=== PATIENT | male | born 1950 | race Caucasian/White ===

== ENCOUNTER 2017-08-03 10:26 | Inpatient (IN) | payer MEDICARE, BC ==
[2017-08-03] MEDS: traMADol 50 MG Tab PO PRN (20:20)
[2017-08-04] MEDS: Acetaminophen 500 MG Tab PO PRN ×3 (00:33→16:10)
[2017-08-04] MEDS: traMADol 50 MG Tab PO PRN ×3 (03:48→19:28)
[2017-08-04] MEDS ORDERED: Acetaminophen 500 MG Tab PO PRN (08:57)
[2017-08-04] MEDS ORDERED: traMADol 50 MG Tab PO PRN (08:57)
[2017-08-04] MEDS ORDERED: Cyclobenzaprine 10 MG Tab PO PRN (08:57)
[2017-08-04] MEDS ORDERED: Diazepam 2 MG Tab PO PRN (08:57)
--- NOTE | 2017-08-04 09:03 | PCM.HP ---
H&P History of Present Illness - General Date of Service: 08/04/17 Admit Problem/Dx: Admission Diagnosis/Problem Admission Diagnosis/Problem Laminectomy Source of Information: Patient History Limitations: Reports: No Limitations - History of Present Illness Initial Comments - Free Text/Narative: This is a 67-year-old male patient that was transferred here from the [facility] after he had L4-L5 fusion and a decompression of L1-L2, L2-L3. He's here for rehabilitation. He also had positive urinary retention. He states the try to get the catheter out and straight cathetering. He had a lot of retention so he is sent with a catheter in place on Flomax and they recommend a urology appointment. Patient states he has leg pain and it's about the same but his back pain is improved. He has no other concerns. He says wasn't oxycodone but it caused visual hallucinations. He's been using the tramadol and that's working for his pain. He denies chest pain, shortness of breath, wheezing or leg swelling. Lower Back Pain Score (Numeric/FACES): 5 - Related Data Allergies/Adverse Reactions: Allergies Allergy/AdvReac Type Severity Reaction Status Date / Time Penicillins Allergy Stomach Verified 08/03/17 18:34 Upset Home Medications: Home Meds Ascorbic Acid [Vitamin C] 1,000 mg PO DAILY 04/09/15 [History] Aspirin [Ecotrin] 81 mg PO DAILY 04/09/15 [History] Cyclobenzaprine [Flexeril] 10 mg PO BEDTIME PRN 04/09/15 [History] Fexofenadine [Betty] 180 mg PO DAILY 04/09/15 [History] Lisinopril 20 mg PO DAILY 04/09/15 [History] Metoprolol Succinate [Toprol Xl] 100 mg PO DAILY 04/09/15 [History] Multivit-Min/FA/Lycopene/Lut [Centrum Silver Tablet] 1 tab PO DAILY 04/09/15 [ History] Acetaminophen 1,000 mg PO TID PRN 08/03/17 [History] Cranberry 400 mg PO DAILY 08/03/17 [History] Diazepam [Valium] 2 mg PO Q6H PRN 08/03/17 [History] Glucosam/Msm/Chond/Bmv941/Hyal [Vagnpntpslc-Taidtwyfuyy-WIM] 1 tab PO BID [History] Sennosides/Docusate Sodium [Sennosides-Docusate Sodium] 2 tab PO BID 08/03/17 [ History] Tamsulosin [Flomax] 0.4 mg PO DAILY 08/03/17 [History] oxyCODONE 5 mg PO Q4H PRN 08/03/17 [History] traMADol [Ultram] 50 mg PO Q6H PRN 08/03/17 [History] Past Medical History HEENT History: Reports: Impaired Vision Cardiovascular History: Reports: Heart Failure, Hypertension Respiratory History: Reports: COPD Gastrointestinal History: Reports: Hemorrhoids, Hiatal Hernia Other Gastrointestinal History: PSEUDO CYST ON PANCREAS; pancreatitis Genitourinary History: Reports: Renal Calculus Other Genitourinary History: RETENION. STATES WAS TOLD HAS PROSTATE ISSUES Other Musculoskeletal History: BILATERAL SHOULDER PAINS WHICH NEEDED ARTHROSCOPIC CARE WITH Endocrine/Metabolic History: Reports: Obesity/BMI 30+ Other Oncologic History: OF EAR LOBE-skin CA Other Dermatologic History: ACTINIC KERATOSIS, CHRONIC GROIN RASH - Infectious Disease History Infectious Disease History: Reports: Chicken Pox, Measles, Mumps - Past Surgical History HEENT Surgical History: Reports: Other (See Below) Other HEENT Surgeries/Procedures: SINUS SURGERY Cardiovascular Surgical History: Reports: None GI Surgical History: Reports: Cholecystectomy, Colonoscopy Other GI Surgeries/Procedures: LAP TITUS, PANCREATIC CYST; hemorrhoid surgery Male Surgical History: Reports: None Musculoskeletal Surgical History: Reports: Arthroscopic Knee, Shoulder Surgery, Other (See Below) Other Musculoskeletal Surgeries/Procedures:: Bilateral shoulder scopes; Bilateral knee scopes Social & Family History - Family History Family Medical History: Noncontributory - Tobacco Use Smoking Status *Q: Never Smoker - Caffeine Use Caffeine Use: Reports: Coffee, Soda - Recreational Drug Use Recreational Drug Use: No H&P Review of Systems - Review of Systems: Review Of Systems: See Below General: Reports: No Symptoms HEENT: Reports: No Symptoms Pulmonary: Reports: No Symptoms Cardiovascular: Reports: No Symptoms Gastrointestinal: Reports: No Symptoms Genitourinary: Reports: No Symptoms Musculoskeletal: Reports: Back Pain Skin: Reports: No Symptoms Psychiatric: Reports: No Symptoms Neurological: Reports: No Symptoms Hematologic/Lymphatic: Reports: No Symptoms Immunologic: Reports: No Symptoms Exam - Exam Exam: See Below - Vital Signs Weight: 287 lb 9.6 oz - Exam General: Alert, Oriented, Cooperative HEENT: Conjunctiva Clear, EACs Clear, EOMI, Hearing Intact, Mucosa Moist & [place] , Posterior Pharynx Clear, TMs Clear Neck: Supple, Trachea Midline Lungs: Clear to Auscultation, Normal Respiratory Effort. No: Crackles, Rales, Rhonchi Cardiovascular: Regular Rate, Regular Rhythm, Normal S1, Normal S2. No: Systolic Murmur, Diastolic Murmur GI/Abdominal Exam: Normal Bowel Sounds, Non-Tender, No Organomegaly, No Distention, No Mass Extremities: Normal Inspection, Non-Tender, No Pedal Edema Skin: Warm Neurological: Normal Speech, Normal Tone Neuro Extensive - Mental Status: Alert, Oriented x3, Normal Mood/Affect, Normal Cognition Psychiatric: Alert, Normal Affect, Normal Mood *Q Meaningful Use (ADM) - VTE *Q VTE Criteria *Q: - Stroke *Q Stroke Criteria *Q: - AMI *Q AMI Criteria *Q: - Problem List (1) Fusion of lumbar spine SNOMED Code(s): 297513101 ICD Code: M43.26 - FUSION OF SPINE, LUMBAR REGION Status: Acute Current Visit: Yes (2) Constipation SNOMED Code(s): 67885108 ICD Code: K59.00 - CONSTIPATION, UNSPECIFIED Status: Acute Current Visit : Yes (3) Urinary retention SNOMED Code(s): 201272671 ICD Code: R33.9 - RETENTION OF URINE, UNSPECIFIED Status: Acute Current Visit: Yes (4) Rothman catheter in place on admission SNOMED Code(s): 758596737 ICD Code: Z96.0 - PRESENCE OF UROGENITAL IMPLANTS Status: Acute Current Visit: Yes Problem List Initiated/Reviewed/Updated: Yes Orders Last 24hrs: Active Orders 24 hr Category Date Time Status Admission Status [Patient Status] [ADT] Routine ADT 08/03/17 16:50 Active Incentive Spirometry [RT Incentive Spirometry] [] Care 08/03/17 19:02 Active ASDIRECTED May Shower [] DAILY Care 08/03/17 18:37 Active Oxygen Therapy [] PRN Care 08/03/17 18:37 Active Up ad Jennifer [] QSHIFT Care 08/03/17 18:37 Active Urinary Catheter Assessment [RC] 08,16,00 Care 08/03/17 18:37 Active Vital Signs [RC] 08 Care 08/03/17 18:37 Active Wound Care [RC] 08,16,00 Care 08/03/17 18:37 Active OT Evaluation and Treatment [CONS] Routine Cons 08/03/17 18:37 Active PT Evaluation and Treatment [CONS] Routine Cons 08/03/17 18:37 Active Regular Diet [DIET] Diet 08/03/17 Dinner Active Acetaminophen [Tylenol Extra Strength] Med 08/03/17 19:37 Active 1,000 mg PO TID PRN Acetaminophen [Tylenol Extra Strength] Med 08/04/17 08:57 Ordered 1,000 mg PO TID PRN Ascorbic Acid [Vitamin C] Med 08/04/17 09:00 Ordered 1,000 mg PO DAILY Aspirin [Halfprin] Med 08/04/17 09:00 Ordered 81 mg PO DAILY Cranberry [Cranberry] Med 08/04/17 09:00 Ordered 400 mg PO DAILY Cyclobenzaprine [Flexeril] Med 08/04/17 08:57 Ordered 10 mg PO BEDTIME PRN Diazepam [Valium] Med 08/04/17 08:57 Ordered 2 mg PO Q6H PRN Docusate Sodium/Sennosides [Senna Plus] Med 08/03/17 21:00 Active 2 tab PO BID Docusate Sodium/Sennosides [Senna Plus] Med 08/04/17 09:00 Ordered 2 tab PO BID Fexofenadine [Betty] Med 08/04/17 09:00 Ordered 180 mg PO DAILY Glucosam/Msm/Chond/Odt169/Hyal [Glucosamine-Chondroitin Med 08/04/17 09:00 Ordered -MSM] 1 tab PO BID Lisinopril [Prinivil] Med 08/04/17 09:00 Ordered 20 mg PO DAILY Metoprolol Succinate [Toprol XL] Med 08/04/17 09:00 Ordered 100 mg PO DAILY Multivit-Min/FA/Lycopene/Lut [Centrum Silver Tablet] Med 08/04/17 09:00 Ordered 1 tab PO DAILY Tamsulosin [Flomax] Med 08/04/17 09:00 Ordered 0.4 mg PO DAILY traMADol [Ultram] Med 08/03/17 19:37 Active 50 mg PO Q6H PRN traMADol [Ultram] Med 08/04/17 08:57 Ordered 50 mg PO Q6H PRN Ice Therapy [OM.PC] Routine Oth 08/03/17 18:37 Ordered Resuscitation Status Routine Resus Stat 08/03/17 18:37 Ordered Medication Orders Acetaminophen (Tylenol Extra Strength) 1,000 mg PO TID PRN PRN Reason: Pain Last Admin: 08/04/17 00:33 Dose: 1,000 mg Acetaminophen (Tylenol Extra Strength) 1,000 mg PO TID PRN PRN Reason: Pain Aspirin (Halfprin) 81 mg PO DAILY JES Cyclobenzaprine HCl (Flexeril) 10 mg PO BEDTIME PRN PRN Reason: Muscle Spasm Diazepam (Valium) 2 mg PO Q6H PRN PRN Reason: Anxiety Fexofenadine HCl (Betty) 180 mg PO DAILY JES Lisinopril (Prinivil) 20 mg PO DAILY JES Metoprolol Succinate (Toprol Xl) 100 mg PO DAILY [facility] Non-Formulary Medication (Ascorbic Acid [Vitamin C]) 1,000 mg PO DAILY [facility] Non-Formulary Medication (Cranberry [Cranberry]) 400 mg PO DAILY [facility] Non-Formulary Medication (Glucosam/Msm/Chond/Iys975/Hyal [Glucosamine- Chondroitin-Msm]) 1 tab PO BID [facility] Non-Formulary Medication (Multivit-Min/Fa/Lycopene/Lut [Centrum Silver Tablet]) 1 tab PO DAILY JES Senna/Docusate Sodium (Senna Plus) 2 tab PO BID JES Last Admin: 08/04/17 08:26 Dose: 2 tab Admin: 08/03/17 20:19 Dose: 2 tab Senna/Docusate Sodium (Senna Plus) 2 tab PO BID JES Tamsulosin HCl (Flomax) 0.4 mg PO DAILY [facility] Tramadol HCl (Ultram) 50 mg PO Q6H PRN PRN Reason: Pain Last Admin: 08/04/17 03:48 Dose: 50 mg Admin: 08/03/17 20:20 Dose: 50 mg Tramadol HCl (Ultram) 50 mg PO Q6H PRN PRN Reason: Pain Assessment/Plan Comment:: 1. Admit the patient to swing bed 2. Continue his home meds. Hold oxycodone use tramadol for pain. 3. PT/OT. 4. Wound care. 5. Urology consultation in regards to urinary retention and catheter placement.
[2017-08-04] MEDS: Lisinopril 20 MG Tab PO SCH (10:15)
[2017-08-04] MEDS: Aspirin 81 MG Tab.EC PO SCH (10:15)
[2017-08-04] MEDS: Tamsulosin 0.4 MG Cap.ER PO SCH (10:15)
[2017-08-04] MEDS: Metoprolol Succinate 100 MG Tab.ER PO SCH (10:15)
[2017-08-04] MEDS: Multivitamins, Therapeutic with Minerals Tab PO SCH (10:16)
[2017-08-04] MEDS: Chondroitin/Glucosamine Cap PO SCH ×2 (10:16→20:36)
[2017-08-04] MEDS: Ascorbic Acid 500 MG Tab PO SCH (10:16)
[2017-08-04] MEDS: Cranberry 500 MG Cap PO SCH (10:16)
[2017-08-05] MEDS: traMADol 50 MG Tab PO PRN ×3 (02:31→19:25)
[2017-08-05] MEDS: Acetaminophen 500 MG Tab PO PRN ×2 (07:50→16:45)
[2017-08-05] MEDS: Cranberry 500 MG Cap PO SCH (08:20)
[2017-08-05] MEDS: Tamsulosin 0.4 MG Cap.ER PO SCH (08:20)
[2017-08-05] MEDS: Aspirin 81 MG Tab.EC PO SCH (08:20)
[2017-08-05] MEDS: Chondroitin/Glucosamine Cap PO SCH ×2 (08:20→20:38)
[2017-08-05] MEDS: Lisinopril 20 MG Tab PO SCH (08:21)
[2017-08-05] MEDS: Metoprolol Succinate 100 MG Tab.ER PO SCH (08:21)
[2017-08-05] MEDS: Multivitamins, Therapeutic with Minerals Tab PO SCH (08:22)
[2017-08-05] MEDS: Ascorbic Acid 500 MG Tab PO SCH (08:22)
[2017-08-05] MEDS: Polyethylene Glycol 3350 Powder 17 GM Packet PO SCH (16:37)
[2017-08-06] MEDS: Acetaminophen 500 MG Tab PO PRN (00:56)
[2017-08-06] MEDS: traMADol 50 MG Tab PO PRN ×4 (03:43→21:26)
[2017-08-06] MEDS: Multivitamins, Therapeutic with Minerals Tab PO SCH (08:15)
[2017-08-06] MEDS: Chondroitin/Glucosamine Cap PO SCH ×2 (08:15→20:26)
[2017-08-06] MEDS: Polyethylene Glycol 3350 Powder 17 GM Packet PO SCH (08:15)
[2017-08-06] MEDS: Lisinopril 20 MG Tab PO SCH (08:15)
[2017-08-06] MEDS: Tamsulosin 0.4 MG Cap.ER PO SCH (08:16)
[2017-08-06] MEDS: Metoprolol Succinate 100 MG Tab.ER PO SCH (08:16)
[2017-08-06] MEDS: Cranberry 500 MG Cap PO SCH (08:16)
[2017-08-06] MEDS: Aspirin 81 MG Tab.EC PO SCH (08:16)
[2017-08-06] MEDS: Ascorbic Acid 500 MG Tab PO SCH (08:16)
[2017-08-06] MEDS ORDERED: Bisacodyl 10 MG Supp RECTAL ONE (11:00)
[2017-08-07] MEDS: traMADol 50 MG Tab PO PRN (05:18)
[2017-08-07] MEDS: Cranberry 500 MG Cap PO SCH (08:32)
[2017-08-07] MEDS: Chondroitin/Glucosamine Cap PO SCH ×2 (08:33→20:27)
[2017-08-07] MEDS: Tamsulosin 0.4 MG Cap.ER PO SCH (08:33)
[2017-08-07] MEDS: Lisinopril 20 MG Tab PO SCH (08:34)
[2017-08-07] MEDS: Aspirin 81 MG Tab.EC PO SCH (08:34)
[2017-08-07] MEDS: Polyethylene Glycol 3350 Powder 17 GM Packet PO SCH (08:34)
[2017-08-07] MEDS: Metoprolol Succinate 100 MG Tab.ER PO SCH (08:36)
[2017-08-07] MEDS: Ascorbic Acid 500 MG Tab PO SCH (08:37)
[2017-08-07] MEDS: Multivitamins, Therapeutic with Minerals Tab PO SCH (08:37)
[2017-08-07] MEDS: Acetaminophen 500 MG Tab PO PRN ×2 (09:01→15:21)
--- NOTE | 2017-08-07 13:16 | PN ---
DATE SEEN: 08/07/2017 SUBJECTIVE: Philip George is a 67-year-old male, presently in swing bed. On 07/30/2017 underwent complicated back surgery, laminectomy, multiple sites, hardware in place. Doing well. Rothman catheter in place. Attempts to remove during his acute care stay at [facility] unsuccessful. Urology visit upcoming and planned, [place]. Pain is controlled, otherwise. PHYSICAL EXAMINATION: VITAL SIGNS: Stable. Temperature 37.2 Fahrenheit, pulse 82, blood pressure 120/68, respirations 16, and 02 saturations 98%. CHEST: Clear. HEART: Regular. ABDOMEN: Benign. Surgical site: Low back Steri-Strips off, healing well. ASSESSMENT: Postoperative care laminectomy. PLAN: Medications, care, and treatment, PT involved, though limited use, 5- pound weight allowed. Intervention and care as appropriate. Discharge in the near future. /[id number] JOSS/LESLI
[2017-08-08] MEDS: traMADol 50 MG Tab PO PRN ×3 (00:20→22:18)
[2017-08-08] MEDS: Acetaminophen 500 MG Tab PO PRN ×2 (06:28→19:09)
[2017-08-08] MEDS: Multivitamins, Therapeutic with Minerals Tab PO SCH (08:40)
[2017-08-08] MEDS: Cranberry 500 MG Cap PO SCH (08:40)
[2017-08-08] MEDS: Tamsulosin 0.4 MG Cap.ER PO SCH (08:40)
[2017-08-08] MEDS: Aspirin 81 MG Tab.EC PO SCH (08:40)
[2017-08-08] MEDS: Chondroitin/Glucosamine Cap PO SCH ×2 (08:40→21:07)
[2017-08-08] MEDS: Ascorbic Acid 500 MG Tab PO SCH (08:40)
[2017-08-08] MEDS: Lisinopril 20 MG Tab PO SCH (08:40)
[2017-08-08] MEDS: Metoprolol Succinate 100 MG Tab.ER PO SCH (08:40)
[2017-08-08] MEDS: Polyethylene Glycol 3350 Powder 17 GM Packet PO SCH (08:41)
--- NOTE | 2017-08-08 12:12 | PN ---
DATE SEEN: 08/08/2017 SUBJECTIVE: Philip George is a 67-year-old male seen today for review. Status post complicated lumbar back surgery, doing well. Pain is controlled. Ambulating with greater success. Rothman catheter draining without difficulty. LABORATORY DATA: None. OBJECTIVE: VITAL SIGNS: 36.3, 142/75, 18, 99%. GENERAL: In good spirits. CHEST: Clear. HEART: Regular. ABDOMEN: Benign. Rothman draining without difficulty. BACK: Surgical wound intact. ASSESSMENT: Rehab status post complicated lumbar back surgery. PLAN: All looks well. Discharge home tomorrow. Caregiver is in place. /[id number] JOSS/LESLI
[2017-08-08] MEDS: Ciprofloxacin 250 MG Tab PO SCH (18:21)
[2017-08-09] MEDS: Acetaminophen 500 MG Tab PO PRN (04:32)
[2017-08-09] MEDS: Ciprofloxacin 250 MG Tab PO SCH (08:27)
[2017-08-09] MEDS: Chondroitin/Glucosamine Cap PO SCH (08:27)
[2017-08-09] MEDS: Cranberry 500 MG Cap PO SCH (08:27)
[2017-08-09] MEDS: Lisinopril 20 MG Tab PO SCH (08:27)
[2017-08-09] MEDS: Aspirin 81 MG Tab.EC PO SCH (08:28)
[2017-08-09] MEDS: Metoprolol Succinate 100 MG Tab.ER PO SCH (08:28)
[2017-08-09] MEDS: Multivitamins, Therapeutic with Minerals Tab PO SCH (08:28)
[2017-08-09] MEDS: Tamsulosin 0.4 MG Cap.ER PO SCH (08:28)
[2017-08-09] MEDS: Polyethylene Glycol 3350 Powder 17 GM Packet PO SCH (08:28)
[2017-08-09] MEDS: Ascorbic Acid 500 MG Tab PO SCH (08:28)
[2017-08-09 08:29] VITALS: BP 123/70
--- NOTE | 2017-08-09 12:42 | DISCH ---
DISCHARGE DATE: 08/09/2017 HOSPITAL COURSE: Philip George is a 67-year-old, male, admitted to swing bed. Underwent a complicated back surgery including fusion in the [facility]. L4-L5 fusion, decompression L1-L2 for rehab therapy. Acute urinary retention, required catheterization and institution of Flomax. Intolerance to oxycodone led to change in pain pills. During his hospital stay, he has been ambulated. PT/OT have been actively involved. Pain has been controlled. Wounds have been surveillance and without complicating issue. DISPOSITION: At the time of discharge, he was comfortable going home. , a retired nurse, in attendance. SURGICAL PROCEDURES: None. CONSULTATIONS: None. MEDICATIONS: Please see med recon list. /[id number] JOSS/LESLI
== END 2017-08-09 12:17 | disposition home or self-care (01) | DRG 950 ==
LOC: FB.MS 17:56
PROVIDERS: ADMIT Family Medicine; ATTEND Family Medicine
DX: Z48.89 Encounter for other specified surgical aftercare (principal); Z98.1 Arthrodesis status; Z98.890 Other specified postprocedural states; R33.9 Retention of urine, unspecified; I10 Essential (primary) hypertension; K59.00 Constipation, unspecified; Z88.0 Allergy status to penicillin; Z85.828 Personal history of other malignant neoplasm of skin
CPT/HCPCS: 81001; 87086; 87088; 87186; 94150; 97161-GP; 97166-GO; 97530-GO; 97530-GO-KX; 97530-GP; 97535-GO; A9270; A9270-GY

== ENCOUNTER 2020-07-23 07:06 | Day surgery (SDC) | payer MEDICARE, BC ==
[2020-07-23] MEDS ORDERED: Rocuronium 50 MG/5 ML Vial IV ONE (07:07)
[2020-07-23] MEDS ORDERED: fentaNYL 100 MCG/2 ML SDV IV ONE (07:07)
[2020-07-23] MEDS ORDERED: Lactated Ringers 1,000 ML IV ONE (07:07)
[2020-07-23] MEDS ORDERED: Sugammadex Sodium 200 MG/2 ML VIAL IV ONE (07:07)
[2020-07-23] MEDS ORDERED: Dexmedetomidine 200 MCG/2 ML SDV IV ONE (07:07)
[2020-07-23] MEDS ORDERED: Ketorolac 30 MG/ML SDV IVPUSH ONE (07:07)
[2020-07-23] MEDS ORDERED: Succinylcholine 200 MG/10 ML MDV IV ONE (07:07)
[2020-07-23] MEDS ORDERED: Midazolam 1 MG/ML 2 ML SDV IV ONE (07:07)
[2020-07-23] MEDS ORDERED: Propofol 200 MG/20 ML SDV IV ONE (07:07)
[2020-07-23] MEDS ORDERED: Lactated Ringers 1,000 ML IV SCH (07:15)
[2020-07-23] MEDS ORDERED: Sodium Chloride 0.9% 10 ML Syringe FLUSH PRN (07:15)
[2020-07-23] MEDS ORDERED: Bupivacaine 0.5% 50 ML MDV INJECT ONE (09:01)
[2020-07-23] MEDS ORDERED: Lidocaine 1% with EPINEPHrine 1:100,000 20 ML MDV INJECT ONE (09:01)
--- NOTE | 2020-07-23 09:31 | PCM.OPNOTE ---
- General Post-Op/Procedure Note Date of Surgery/Procedure: 07/23/20 Operative Procedure(s): umbilical hernia repair with mesh Findings: 2 cm defect umbilical hernia Pre Op Diagnosis: umbilical hernia without obstruction or gangrene Post-Op Diagnosis: Same Anesthesia Technique: General ET Tube, Local (7 ml 1 % lido with epi/0.5% buvipicaine) Primary Surgeon: Tremayne Price Anesthesia Provider: Radha Brooks Pathology: none EBL in mLs: 3 Complications: None Condition: Good Free Text/Narrative:: see dictation [id number]
[2020-07-23] MEDS ORDERED: Acetaminophen/HYDROcodone 325-5 MG Tab PO ONE (10:07)
[2020-07-23 10:22] VITALS: PULSE 56
[2020-07-23 10:46] VITALS: BP 101/62
--- NOTE | 2020-07-23 10:47 | OR ---
DATE OF OPERATION: 07/23/2020 SURGEON: Tremayne Price MD PROCEDURE PERFORMED: Umbilical hernia repair with mesh. PREOPERATIVE DIAGNOSIS: Umbilical hernia without obstruction or gangrene. POSTOPERATIVE DIAGNOSIS: Umbilical hernia without obstruction or gangrene. INDICATIONS FOR PROCEDURE: This is a 70-year-old white male who is referred with a symptomatic umbilical hernia. He was offered and accepted the same. INTRAOPERATIVE FINDINGS: A nonobstructing 2-cm umbilical hernia was identified. This was repaired with a Ventralex ST hernia patch, reference #[id number], lot #[id number], expiration date . This is a 6.4 cm in diameter size mesh and 7 mL of 1:1 mixture of 1% lidocaine with epinephrine and 0.5% bupivacaine was used to infiltrate the area. DESCRIPTION OF PROCEDURE: After an excellent general anesthetic was administered via endotracheal tube, the patient was prepped and draped in usual sterile manner. Local was used to create a field block around the umbilicus. A curvilinear incision was then made at the base of the umbilicus. The underlying tissue was divided with combination of sharp and blunt dissection with the Metzenbaum scissors. The hernia sac was dissected free from the surrounding tissue. It was then dissected off the umbilicus itself. The preperitoneal fat as well as the hernia sac was then divided using electrocautery after inserting a finger into the defect to ensure no intraabdominal contents were there. The specimen was then passed off the field. The fat was then cleared from the anterior abdominal wall using blunt dissection. The mesh was then inserted, and attention was placed on the mesh itself and then it was closed with a running 0 Prolene incorporating the mesh as we went. The tails were transected. An additional suture was placed in the middle where the mesh came out of 0 Prolene as well to ensure complete approximation of our fascial edges and incorporation of the mesh. The umbilicus was then tacked to the anterior abdominal wall with a [id number] 0 Vicryl. The wound was irrigated. The skin was closed with varsha. The patient tolerated the procedure well, was taken to recovery in good condition. /[id number] /MODL
== END 2020-07-23 11:05 | disposition home or self-care (01) ==
LOC: FB.SDS 07:06
PROVIDERS: ATTEND Surgery
DX: K42.9 Umbilical hernia without obstruction or gangrene (principal); I10 Essential (primary) hypertension; G89.29 Other chronic pain; G43.909 Migraine, unspecified, not intractable, without status migrainosus; K21.9 Gastro-esophageal reflux disease without esophagitis; J44.9 Chronic obstructive pulmonary disease, unspecified; Z79.899 Other long term (current) drug therapy; Z88.0 Allergy status to penicillin; Z98.890 Other specified postprocedural states; Z79.82 Long term (current) use of aspirin
CPT/HCPCS: 00750; 49585; A9270; C1781; J0330; J0690; J1885; J2250; J2704; J3010; J3490; J7120

== ENCOUNTER 2021-04-16 09:27 | Day surgery (SDC) | payer MEDICARE, BC ==
[2021-04-16] MEDS ORDERED: Propofol 200 MG/20 ML SDV IV ONE (09:28)
[2021-04-16] MEDS ORDERED: Lactated Ringers 1,000 ML IV SCH ×2 (09:30)
[2021-04-16] MEDS ORDERED: Sodium Chloride 0.9% 10 ML Syringe FLUSH PRN ×2 (09:30)
--- NOTE | 2021-04-16 11:05 | PCM.HPR ---
H & P Addendum review - H & P Addendum Review Date of Original H & P: 04/10/21 Date Reviewed: 04/16/21 Time Reviewed: 10:30 Patient was Examined: No Changes
--- NOTE | 2021-04-16 11:06 | PCM.OPNOTE ---
- General Post-Op/Procedure Note Date of Surgery/Procedure: 04/16/21 Operative Procedure(s): Colonoscopy Findings: Enlarged Hemorrhoids Pre Op Diagnosis: Hematochezia Post-Op Diagnosis: Same Anesthesia Technique: MAC Primary Surgeon: Gordon Waters Anesthesia Provider: Rebeca Cordova Condition: Good
[2021-04-16 11:40] VITALS: BP 100/81; PULSE 68
--- NOTE | 2021-04-16 14:38 | OR ---
DATE OF OPERATION: 04/16/2021 SURGEON: Gordon Waters MD PREOPERATIVE DIAGNOSIS: Hematochezia. POSTOPERATIVE DIAGNOSIS: Enlarged hemorrhoids. PROCEDURE: Colonoscopy. ANESTHESIA: IV sedation. DESCRIPTION OF PROCEDURE: The patient was brought to the procedure room where he was placed on his left side and IV sedation administered. Digital rectal exam was performed which was normal. Colonoscope was inserted and advanced to the level of the cecum without difficulty. Cecal position was confirmed by identifying the appendiceal lumen and ileocecal valve. Prep was good and surfaces were well visualized. Upon withdrawing the scope, the ascending, transverse, and descending colon were normal in appearance. Sigmoid colon and rectum were normal. Retroflexion reveals fairly normal-appearing internal hemorrhoids without any evidence of bleeding. His external hemorrhoids are significantly enlarged and I suspect this is where the bleeding has been coming from. Air was removed and the scope withdrawn. The patient tolerated the procedure well and returned to Recovery in stable condition. I will contact S[facility] Fatima, with the findings. Because of his multiple previous surgeries and some issues with incontinence, I will have him see Dr. Minor from [facility] in [place] to see if he is a candidate for further surgery. Preoperative testing with anal manometry may be necessary. /[id number] JONELLE/LESLI
== END 2021-04-16 12:00 | disposition home or self-care (01) ==
LOC: FB.SDS 09:27
PROVIDERS: ATTEND Surgery
DX: K64.4 Residual hemorrhoidal skin tags (principal); K92.1 Melena; K64.8 Other hemorrhoids; I10 Essential (primary) hypertension; Z79.899 Other long term (current) drug therapy; Z85.828 Personal history of other malignant neoplasm of skin; Z88.0 Allergy status to penicillin
CPT/HCPCS: 00811-QZ; J2704; J7120

== ENCOUNTER 2021-08-28 07:40 | Emergency (ER) | payer MEDICARE, BC ==
[2021-08-28] MEDS ORDERED: Lidocaine 2% Viscous Solution 15 ML UD PO ONE (08:11)
[2021-08-28 09:11] VITALS: BP 113/65; PULSE 60
--- NOTE | 2021-08-28 09:26 | EDM.PDOC ---
ED HPI GENERAL MEDICAL PROBLEM - General Chief Complaint: Gastrointestinal Problem Stated Complaint: BLEEDING FROM SURGERY Time Seen by Provider: 08/28/21 07:50 Source of Information: Reports: Patient, Family History Limitations: Reports: No Limitations - History of Present Illness INITIAL COMMENTS - FREE TEXT/NARRATIVE: Patient is a 71 YO WM who had been having active rectal bleeding since last night. He had a hemorrhoidectomy done 1 week ago at [facility]. He denies having any abdominal pain, dizziness, lightheadedness. Rectal Pain Score (Numeric/FACES): 4 - Related Data Allergies Allergy/AdvReac Type Severity Reaction Status Date / Time Penicillins AdvReac Nausea Verified 08/28/21 08:20 Home Meds: Home Meds Ascorbic Acid [Vitamin C] 1,000 mg PO DAILY 04/09/15 [History] Aspirin [Ecotrin EC] 81 mg PO DAILY 04/09/15 [History] Lisinopril 20 mg PO DAILY 04/09/15 [History] Metoprolol Succinate [Toprol Xl] 100 mg PO DAILY 04/09/15 [History] Multivit-Min/FA/Lycopen/Lutein [Centrum Silver Tablet] 1 tab PO DAILY 04/09/15 [History] Cranberry 400 mg PO BID 08/03/17 [History] Glucosam/Msm/Chond/Pdq846/Hyal [Gjwuccccoqg-Ztednjdcljv-RMO] 1 tab PO BID 08/03/17 [History] Tamsulosin [Flomax] 0.4 mg PO DAILY 08/03/17 [History] Montelukast [Singulair] 10 mg PO BEDTIME 07/18/20 [History] Naproxen 500 mg PO BIDMEALS 07/18/20 [History] Nystatin/Triamcinolone Crm [Mycolog Crm] 1 applic TOP BID 07/18/20 [History] Past Medical History HEENT History: Reports: Allergic Rhinitis, Impaired Vision Cardiovascular History: Reports: Heart Failure, Hypertension Respiratory History: Reports: Asthma, COPD Gastrointestinal History: Reports: GERD, Hemorrhoids, Hiatal Hernia Other Gastrointestinal History: PSEUDO CYST ON PANCREAS; pancreatitis Genitourinary History: Reports: Prostate Disorder, Renal Calculus Other Genitourinary History: RETENION. STATES WAS TOLD HAS PROSTATE ISSUES Musculoskeletal History: Reports: Back Pain, Chronic, Osteoarthritis Other Musculoskeletal History: BILATERAL SHOULDER PAINS WHICH NEEDED ARTHROSCO PIC CARE WITH Neurological History: Reports: Migraines Psychiatric History: Reports: None Endocrine/Metabolic History: Reports: Obesity/BMI 30+ Hematologic History: Reports: None Immunologic History: Reports: None Other Oncologic History: OF EAR LOBE-skin CA Dermatologic History: Reports: Other (See Below) Other Dermatologic History: ACTINIC KERATOSIS, CHRONIC GROIN RASH - Infectious Disease History Infectious Disease History: Reports: Chicken Pox, Measles, Mumps - Past Surgical History Head Surgeries/Procedures: Reports: None HEENT Surgical History: Reports: Naso-Sinus Surgery, Other (See Below) Other HEENT Surgeries/Procedures: SINUS SURGERY Cardiovascular Surgical History: Reports: None Respiratory Surgical History: Reports: None GI Surgical History: Reports: Cholecystectomy, Colonoscopy, Hernia Repair/Other Other GI Surgeries/Procedures: LAP TITUS. PANCREATIC CYST. hemorrhoid surgery Male Surgical History: Reports: None Endocrine Surgical History: Reports: None Neurological Surgical History: Reports: Spinal Fusion, Other (See Below) Other Neurological Surgeries/Procedures: FUSION L4-5 Musculoskeletal Surgical History: Reports: Arthroscopic Knee, Shoulder Surgery, Other (See Below) Other Musculoskeletal Surgeries/Procedures:: Bilateral shoulder scopes; Bilateral knee scopes Dermatological Surgical History: Reports: None Social & Family History - Family History Family Medical History: No Pertinent Family History - Tobacco Use Tobacco Use Status *Q: Never Tobacco User - Caffeine Use Caffeine Use: Reports: Soda - Recreational Drug Use Recreational Drug Use: No ED ROS GENERAL - Review of Systems Review Of Systems: See Below Constitutional: Reports: No Symptoms HEENT: Reports: No Symptoms Respiratory: Reports: No Symptoms Cardiovascular: Reports: No Symptoms Endocrine: Reports: No Symptoms GI/Abdominal: Reports: No Symptoms : Reports: No Symptoms Musculoskeletal: Reports: Other (back pain) Skin: Reports: No Symptoms Neurological: Reports: No Symptoms Psychiatric: Reports: No Symptoms Hematologic/Lymphatic: Reports: No Symptoms ED EXAM, GENERAL - Physical Exam Exam: See Below Exam Limited By: No Limitations General Appearance: Alert, No Apparent Distress Eye Exam: Bilateral Eye: PERRL Ears: Normal External Exam, Normal Canal Nose: Normal Inspection, Normal Mucosa, No Blood Throat/Mouth: Normal Inspection, Normal Teeth Neck: Normal Inspection, Supple, Non-Tender, Full Range of Motion Respiratory/Chest: No Respiratory Distress, Lungs Clear, Normal Breath Sounds, No Accessory Muscle Use, Chest Non-Tender Cardiovascular: Normal Peripheral Pulses, Regular Rate, Rhythm, No Edema, No Gallop, No JVD GI/Abdominal: Normal Bowel Sounds, Soft, Non-Tender Rectal (Males) Exam: Other (active rectal bleed) Back Exam: Normal Inspection Extremities: Normal Inspection Psychiatric: Normal Affect, Normal Mood Skin Exam: Warm Course - Vital Signs Text/Narrative:: Labs reviewed Consult was done with Dr Minor who did the surgery and want patient to be seen in clinic today Patient agreed to drive at [place] by a private car Last Recorded V/S: Last Vital Signs Temp 36.2 C 08/28/21 07:40 Pulse 60 08/28/21 09:00 Resp 18 08/28/21 09:00 BP 113/65 08/28/21 09:00 Pulse Ox 97 08/28/21 09:00 - Orders/Labs/Meds Orders: Active Orders 24 hr Category Date Time Status INR,PT,PROTHROMBIN TIME [COAG] Stat Lab 08/28/21 09:06 Ordered PTT,PARTIAL THROMBOPLSTIN TIME [COAG] Stat Lab 08/28/21 09:06 Ordered Labs: Laboratory Tests 08/28/21 08/28/21 Range/Units 09:10 09:10 WBC 8.1 (3.2-10.1) x10-3/uL RBC 4.26 (3.90-5.90) x10(6)uL Hgb 13.4 (12.9-17.7) g/dL Hct 39.7 (38.3-50.1) % MCV 93.3 (80.8-98.7) fL MCH 31.4 (27.0-33.3) pg MCHC 33.7 (28.7-35.3) g/dL RDW 13.7 (12.4-15.0) % Plt Count 231 (117-477) x10(3)uL MPV 7.4 (6.7-11.0) fL Neut % (Auto) 70.1 (40.3-71.8) % Lymph % (Auto) 20.5 (15.8-45.3) % [place] % (Auto) 6.9 (5.5-15.2) % Eos % (Auto) 2.1 (0.1-6.8) % Baso % (Auto) 0.4 (0.3-3.8) % Neut # (Auto) 5.7 (1.7-6.9) x10-3/uL Lymph # (Auto) 1.7 (0.5-4.5) x10-3/uL [place] # (Auto) 0.6 (0.0-1.2) x10-3/uL Eos # (Auto) 0.2 (0.0-0.6) x10-3/uL Baso # (Auto) 0.0 (0.0-0.3) x10-3/uL Sodium 138 (135-145) mmol/L Potassium 4.4 (3.5-5.3) mmol/L Chloride 103 (100-110) mmol/L Carbon Dioxide 26 (21-32) mmol/L BUN 28 H (7-18) mg/dL Creatinine 0.9 (0.70-1.30) mg/dL Est Cr Clr Drug Dosing 85.02 mL/min Estimated GFR (MDRD) > 60 (>60) BUN/Creatinine Ratio 31.1 H (9-20) Glucose 107 (80-116) mg/dL Calcium 8.8 (8.6-10.2) mg/dL Meds: Medications Discontinued Medications Generic Name Dose Route Start Last Admin Trade Name Freq PRN Reason Stop Dose Admin Lidocaine HCl 15 ml 08/28/21 08:11 08/28/21 08:30 Lidocaine 2% Viscous Solution 15 Ml Ud PO 08/28/21 08:12 15 ml ONETIME ONE Administration Departure - Departure Time of Disposition: 09:00 Disposition: DC/Tfer to Acute Hospital 02 Condition: Good Clinical Impression: S/P hemorrhoidectomy, Rectal bleeding - Discharge Information Instructions: Rectal Bleeding, Surgical Procedures for Hemorrhoids, Care After Referrals: Joy Goodman PA [Primary Care Provider] - Forms: ED Department Discharge Additional Instructions: Please proceed to [facility] at [address] [place] [address] Sepsis Event Note (ED) - Evaluation Sepsis Screening Result: No Definite Risk - Focused Exam Vital Signs: Vital Signs Temp Pulse Resp BP Pulse Ox 08/28/21 09:00 60 18 113/65 97 08/28/21 07:40 36.2 C 97 18 132/74 97 - My Orders Last 24 Hours: My Active Orders 08/28/21 09:06 INR,PT,PROTHROMBIN TIME [COAG] Stat PTT,PARTIAL THROMBOPLSTIN TIME [COAG] Stat - Assessment/Plan Last 24 Hours: My Active Orders 08/28/21 09:06 INR,PT,PROTHROMBIN TIME [COAG] Stat PTT,PARTIAL THROMBOPLSTIN TIME [COAG] Stat
== END 2021-08-28 09:45 | disposition other institution (70) ==
LOC: FB.ED 07:40
DX: K62.5 Hemorrhage of anus and rectum (principal); I11.0 Hypertensive heart disease with heart failure; I50.9 Heart failure, unspecified; J44.9 Chronic obstructive pulmonary disease, unspecified; E66.9 Obesity, unspecified; Z68.38 Body mass index [BMI] 38.0-38.9, adult; Z88.0 Allergy status to penicillin; Z79.82 Long term (current) use of aspirin; Z79.899 Other long term (current) drug therapy; Z98.890 Other specified postprocedural states
CPT/HCPCS: 36415; 80048; 85025; 85610; 85730; 99284; A9270-GY

== ENCOUNTER 2021-11-22 07:15 | Day surgery (SDC) | payer MEDICARE, BC ==
[~2021-11-22 07:15] MED LIST: Lactated Ringers 1,000 ML IV SCH; Sodium Chloride 0.9% 10 ML Syringe FLUSH PRN
[2021-11-22] MEDS ORDERED: Propofol 200 MG/20 ML SDV IV ONE (07:16)
[2021-11-22] MEDS ORDERED: Glycopyrrolate 0.2 MG/ML 5 ML MDV IV ONE (07:16)
[2021-11-22] MEDS ORDERED: Lidocaine 4% 5 ML Amp NEB ONE (07:30)
[2021-11-22] MEDS ORDERED: Simethicone Drops 40 MG/0.6 ML 30 ML Bottle ONE (09:37)
[2021-11-22 10:51] VITALS: BP 106/56; PULSE 59
== END 2021-11-22 10:47 | disposition home or self-care (01) ==
LOC: FB.SDS 07:15
PROVIDERS: ATTEND Surgery
DX: K29.60 Other gastritis without bleeding (principal); D64.9 Anemia, unspecified; R55 Syncope and collapse; I10 Essential (primary) hypertension; K21.9 Gastro-esophageal reflux disease without esophagitis; Z79.899 Other long term (current) drug therapy; Z88.0 Allergy status to penicillin; Z98.890 Other specified postprocedural states
CPT/HCPCS: 00731-QZ; 88305; 88342; A9270-GY; J2704; J3490; J7120